=== PATIENT | female | born 1990 | race African-American/Black ===

== ENCOUNTER 2020-06-29 13:51 | Emergency (ER) | payer OTHER ==
[~2020-06-29] VITALS: Ht 175.3 cm; Wt 81.7 kg
[~2020-06-29 13:51] MED LIST: ACETAMINOPHEN-1 EAC1 PO; FLEXERIL PO; NAPROSYN500 MG PO
[2020-06-29] MEDS ORDERED: NOHOMEMEDICATIONS (14:31)
[2020-06-29] MEDS ORDERED: FLEXERIL PO (15:47)
[2020-06-29 16:01] VITALS: BP 124/69
== END 2020-06-29 16:01 | disposition home or self-care (01) ==
LOC: ER 13:51
DX: M54.5 Low back pain (principal); M79.10 Myalgia, unspecified site; F17.210 Nicotine dependence, cigarettes, uncomplicated; V43.52XA Car driver injured in collision with other type car in traffic accident, initial encounter; Y93.89 Activity, other specified; Y92.89 Other specified places as the place of occurrence of the external cause; Y99.8 Other external cause status